=== PATIENT | male | born 1940 | race Caucasian/White ===

== ENCOUNTER 2016-06-18 17:23 | Emergency (ER) | payer MEDICARE, OTHER ==
[~2016-06-18] VITALS: Ht 175.3 cm; Wt 78.2 kg
[2016-06-18 17:30] VITALS: BP 114/62; PULSE 69; RESP 16; O2SAT 96
[2016-06-18 20:04] VITALS: BP 122/62; PULSE 71; RESP 16; O2SAT 97
--- NOTE | 2016-06-18 20:34 | ED.REPORT ---
HPI-General Illness Date of Service Jun 18, 2016 ED Provider: Mirza Chappell MD An otherwise healthy 76 year old male presents to the ED with rashes to his bilateral lower legs and upper arms onset six weeks ago. The rash to his lower extremities is erythematous and painful, accompanied by bilateral leg swelling. The rash to his upper arms is itchy, which the patient believes may be exacerbated by apple and citrus intake. The patient denies chest pain, shortness of breath, or other symptoms. He has been seen in clinic multiple times with these symptoms and was prescribed a course of antibiotics at onset, with no relief. Nursing Notes Stated Complaint: RASH/SWELLING Chief Complaint: Skin Rash/Abscess Nursing Notes Reviewed: Yes Allergies: Uncoded Allergies: PENICILLIN (Allergy, Intermediate, rash, 06/18/16) SUGAR (Allergy, Mild, itching, 06/18/16) Scheduled Furosemide (Lasix) 20 Mg Tablet 20 MG PO DAILY Hydrocortisone Valerate (Hydrocortisone Valerate) 15 Gm Cream..g. 1 GM TP BID Scheduled PRN Hydroxyzine Pamoate (Vistaril) 25 Mg Capsule 25 MG PO HS PRN PRN For Insomnia General Time Seen by MD: 20:33 Chief Complaint Rash Hx Obtained From: Patient Arrived By: Walk-in Sudden in Onset?: No Onset Occurred: More than a week ago... (6 weeks) Symptom Duration: Since onset Location: : Arm left: Arm right: Leg left: Leg right Quality: Itching, Painful Severity: Current: Moderate Severity: Maximum: Moderate Associated with: Reports: Abdominal pain, Denies: Chest pain, Fever Exacerbated by: Eating (Apples and [place]) Pertinent Negative: Relieved by nothing Recent Healthcare: Recent doctor visit Past Medical History Past Medical History None reported Past Surgical History None reported Smoking History Unknown if Ever Smoker Ambulatory Status Independent Review of Systems Full Review of Systems Constitutional: Denies: Fever Respiratory: Denies: Shortness of breath Cardiovascular: Denies: Chest pain GI: Denies: Diarrhea, Vomiting Musculoskeletal: Reports: Extremity swelling (Bilateral lower extremities) Skin: Reports Itching (Upper arms), Reports Rash (Bilateral calves, upper arms) Complete sys rev & neg: except as marked. Physical Exam Vital Signs Vital Signs Date Time Temp Pulse Resp B/P Pulse Ox O2 Delivery O2 Flow Rate FiO2 06/19/16 00:18 36.8 72 18 120/68 97 Room Air 06/18/16 23:09 36.8 72 18 120/68 97 Room Air 06/18/16 20:04 71 16 122/62 97 Room Air 06/18/16 17:30 36.4 69 16 114/62 96 Room Air Initial VS: Reviewed Neck: Supple, Full range of motion Respiratory: Breath sounds normal, Clear to auscultation, No respiratory distress Cardiovascular: Regular rate & rhythm, Heart sounds normal Neurologic: Alert, Oriented, Nonfocal Psychiatric: Mood/affect normal, Behavior normal, Normal thought content Head / Eyes: Atraumatic, Normocephalic, No scleral icterus ENT: Airway patent, Mucous membranes moist, Pharynx NL Lower Extremity / Pelvis / MS: Full range of motion, No deformity Erythematous, brawny edema to bilateral lower extremities with symmetrical splitting of skin, consistent with venous stasis dermatitis Skin: Warm, Dry Rash / Lesion Notes: Generalized, uniform erythematous maculopapular rash diffusely, including back, consistent with eczema No burrows in folds of skin suggestive of scabies Interpretation & Diagnostics Lab Results Interpretation Result Diagram: 06/18/16212506/18/162125 Test 06/18/16 21:26 06/18/16 21:46 White Blood Count 5.0th/mm3 (3.8-10.1) Red Blood Count 4.62mil/mm3 (4.40-5.80) Hemoglobin 15.5g/dL (13.8-17.2) Hematocrit 45.2% (41.0-50.0) Mean Corpuscular Volume 97.8fL (81-100) Mean Corpuscular Hemoglobin 33.5pg (27.0-35.0) Mean Corpuscular Hemoglobin Concent 34.3% (32.0-37.0) Red Cell Distribution Width 12.9% (12.3-15.4) Platelet Count 105bil/L (150-400) Neutrophils (%) (Auto) 54.8% (40-74) Lymphocytes (%) (Auto) 19.0% (14-46) Monocytes (%) (Auto) 7.4% (4-12) Eosinophils (%) (Auto) 18.4% (0-5) Basophils (%) (Auto) 0.2% (0-3) Erythrocyte Sedimentation Rate 3mm/hr (0-30) Prothrombin Time 11.2sec (8.1-12.5) Prothromb Time International Ratio 1.05ratio Sodium Level 139mEq/L (134-144) Potassium Level 4.2mEq/L (3.5-5.2) Chloride Level 102mEq/L (97-108) Carbon Dioxide Level 24mmol/L (18-29) Blood Urea Nitrogen 20mg/dL (8-27) Creatinine 1.21mg/dL (0.76-1.27) Estimat Glomerular Filtration Rate 62mL/min (>59) Glucose Level 97mg/dL (60-99) Calcium Level 8.4mg/dL (8.5-10.1) Magnesium Level 2.3mg/dL (1.6-2.6) Total Bilirubin 0.6mg/dL (0.0-1.2) Aspartate Amino Transf (AST/SGOT) 14U/L (0-50) Alanine Aminotransferase (ALT/SGPT) 11U/L (0-44) Alkaline Phosphatase 59U/L (25-160) Pro-B-Type Natriuretic Peptide 52.00pg/mL (0-486) Total Protein 6.2g/dL (6.4-8.4) Albumin 3.5g/dL (3.4-5.0) Thyroid Stimulating Hormone (TSH) 2.810uIU/mL (0.450-4.500) Free Thyroxine 1.16ng/dL (0.82-1.77) Hold Polanco Top Tube Received (Received) Urine Color Yellow (YELLOW) Urine Appearance Clear (CLEAR,HAZY) Urine pH 5.5 (5.0-8.0) Urine Specific [place] 1.025 (1.003-1.035) Urine Protein Negativemg/dL (NEG,TRACE) Urine Glucose (UA) Negativemg/dL (NEGATIVE) Urine Ketones 15mg/dL (NEGATIVE) Urine Occult Blood Negative (NEGATIVE) Urine Nitrite Negative (NEGATIVE) Urine Bilirubin Negative (NEGATIVE) Urine Urobilinogen Normalmg/dL (NORMAL) Urine Leukocyte Esterase Negative (NEGATIVE) Urine RBC 0-2/hpf (0-2) Urine WBC 0-5/hpf (0-5) Urine Epithelial Cells Occasional/hpf (NONE-MOD) Urine Crystals None seen (NONE SEEN) Urine Bacteria None/hpf (NONE-FEW) Urine Hyaline Casts None/lpf (NONE) Urine Granular Casts None seen (NONE SEEN) Urine Waxy Casts None seen (NONE SEEN) Urine Red Blood Cell Casts None seen (NONE SEEN) Urine White Blood Cell Casts None seen (NONE SEEN) Urine Mucus Present (None Seen) Urine Trichomonas None seen (NONE SEEN) Urine Yeast None (NONE SEEN) Urine Culture Reflexed Not indicated X-Ray Chest Interpretation Chest Xray Interpretation: IMPRESSION: No acute cardiopulmonary findings. Dictated by: Angy Ulrich M.D. on 06/18/2016 at 21:51 View: Portable, 1 view Interpretation / Wet Read by: Interpret - Radiologist Procedures UNNA boots applied to lower legs bilaterally by ED physician and medical student at 23:45 Patient tolerated procedure well Re-Eval/Medical Decision Med Decision/Clinical Course 76-year-old presents with stasis dermatitis in both legs, weeping at this point. Source of his edema is not altogether clear. No evident CHF otherwise. He was placed in Unna boots with plan for follow-up with his PCP in a week and potentially replacement of his Unna boots weekly. He was given Lasix seven day course of 20 mg daily Elevation advised. His other skin lesions are all excoriated maculopapular rash, consistent with eczema. Historical review raises suspicion for citrus intolerance, as he noted an exacerbation after eating citrus fruit. He also eats a lot of nuts and that is an additional suspect. He was advised on an elimination diet, hydroxyzine for her nighttime itch, hydrocortisone valerate cream for his rash, and follow up with PCP. May need dermatologic referral ultimately. Time of Eval: 23:37 Patient Status: Condition improved Re-Evaluation/Progress Note: Patient rechecked. Lower legs wrapped. Discussed with patient x-ray and lab results, diagnosis, and plan for discharge. Follow-up and return to the ER instructions given. Patient agrees with plan for care and all questions were addressed. Counseled Regarding: Diagnosis, Lab results, Need for follow-up, When/why to return to ED Discharge & Departure Shift Change Sign-Out Response to Therapy: Improved Primary Impression: Stasis dermatitis of both legs Additional Impressions: Peripheral edema Eczema Eczema type: unspecified Qualified Code: L30.9 - Dermatitis, unspecified Disposition: Home Discharge Condition All VS Reviewed: Yes Condition: Improved Patient Instructions: Leg Edema (ED), Stasis Dermatitis (ED) Additional Instructions: Wear the boot pl sql developer for a week. Follow-up with your doctor in that timeframe. It may be reasonable to repeat that for two or three cycles until your skin heals. You can remove the compression bandage on the outside, shower , pat dry, and then return the compression dressings on applied without too much tension. If your feet feel numb or cold, loosen and reapply the Julio Cesar wrap bandages on the outside. For the rash on the rest of your body, apply hydrocortisone valerate lotion twice daily. This is a result of some exposure, probably of foodstuff or drug. I doubt it is contact but I cannot be 100% certain of that at this point. My suggestion is to avoid contact with all varieties of nuts, and potentially citrus fruit, since you have noticed that Association. Follow-up with your doctor in the office. Follow-up also with dermatology. This may be a persistent problem and may need specialized attention. You may use Vistaril at night to reduce it should prevent your self causing damage by scratching when you sleep. Take Lasix one tablet daily for the next seven days. Referrals: NOPCP (PCP) Paola Romero MD Attestation Portions of this note were transcribed by Cammy Pinto. I, Dr. Chappell, personally performed the history, physical exam, and medical decision-making; I reviewed and confirmed the accuracy of the information in the transcribed note. Signed by: Miles Ayala, 06/19/2016, 00:32 copies to: Paola Romero MD, Christopher W MD Jun 18, 2016 20:34 CAMMY PINTO Jun 18, 2016 20:53
[2016-06-18 21:36] LABS: BASOPHILS % (AUTO) 0.2 % (0-3); EOSINOPHILS % (AUTO) 18.4 % (0-5); MONOCYTES % (AUTO) 7.4 % (4-12); Mean Corpuscular Hemoglobin 33.5 pg (27.0-35.0); Mean Corpuscular Volume 97.8 fL (81-100); NEUTROPHILS % (AUTO) 54.8 % (40-74); Platelet Count 105 bil/L (150-400)
--- NOTE | 2016-06-18 21:54 | DRSVH ---
PROCEDURE: X-RAY CHEST ONE VIEW, PORTABLE ([id number]) INDICATIONS: edema TECHNIQUE: One view of the chest was acquired. COMPARISON: None. FINDINGS: Surgical changes and devices: None. Lungs and pleura: No pleural effusions or pneumothorax. Lungs are clear. Mediastinum: Mediastinal contours appear normal. Heart size is normal. Bones and chest wall: No suspicious bony lesions. Overlying soft tissues appear unremarkable. IMPRESSION: No acute cardiopulmonary findings. Dictated by: Angy Ulrich M.D. on 06/18/2016 at 21:51 Approved by: Angy Ulrich M.D. on 06/18/2016 at 21:52
[2016-06-18 21:55] LABS: APPEARANCE,URINE CLEAR (CLEAR,HAZY); COLOR,URINE YELLOW (YELLOW); OCCULT BLOOD,URINE NEGATIVE (NEGATIVE); PH,URINE 5.5 (5.0-8.0); UROBILINOGEN,URINE NORMAL (NORMAL)
[2016-06-18 21:58] LABS: INR 1.05 ratio
[2016-06-18 22:06] LABS: ERYTHROCYTE SEDIMENTATION RATE 3 mm/hr (0-30)
[2016-06-18] MEDS ORDERED: NAPR500T PO (22:10)
[2016-06-18] MEDS ORDERED: TRAM50TA2 PO (22:10)
[2016-06-18 22:28] LABS: Magnesium 2.3 mg/dL (1.6-2.6)
[2016-06-18 23:09] VITALS: BP 120/68; PULSE 72; RESP 18; O2SAT 97
[2016-06-18] MEDS ORDERED: HYDR15CR38 TP (23:59)
[2016-06-18] MEDS ORDERED: HYDR25CA PO (23:59)
[2016-06-18] MEDS ORDERED: FURO-129 PO (23:59)
[2016-06-19 00:18] VITALS: BP 120/68; PULSE 72; RESP 18; O2SAT 97
== END 2016-06-19 00:19 | disposition home or self-care (01) ==
LOC: SED 17:23
DX: I87.2 Venous insufficiency (chronic) (peripheral) (principal); R60.0 Localized edema
CPT/HCPCS: 36415; 71010; 80053; 81000; 83735; 83880; 84439; 84443; 85025; 85610; 85651; 99284; G0463

== ENCOUNTER 2016-10-23 13:16 | Emergency (ER) | payer MEDICARE, OTHER ==
[~2016-10-23] VITALS: Ht 177.8 cm; Wt 70.5 kg
[~2016-10-23 13:16] MED LIST: FURO-129 PO; HYDR15CR38 TP; HYDR25CA PO
[2016-10-23 13:21] VITALS: BP 128/65; PULSE 75; RESP 16; O2SAT 96
--- NOTE | 2016-10-23 13:36 | ED.REPORT ---
HPI-Rash / Abscess Date of Service Oct 23, 2016 ED Provider: The patient is a 76 year old male with history of eczema, who presents to the emergency department complaining of an eczema outbreak to his legs, arms, and back that began yesterday. Last night he was in a lot of pain and was unable to sleep. He describes the pain as burning. He has had similar symptoms many times in the past. He normally uses a steroid cream as needed. He has no other concerns at this time. Nursing Notes Stated Complaint: POSSIBLE ECZEMA ON BILATERAL LEGS/FEET Chief Complaint: Skin Rash/Abscess Nursing Notes Reviewed: Yes Allergies: Uncoded Allergies: PENICILLIN (Allergy, Intermediate, rash, 06/18/16) SUGAR (Allergy, Mild, itching, 06/18/16) Scheduled Furosemide (Lasix) 20 Mg Tablet 20 MG PO DAILY Hydrocortisone Valerate (Hydrocortisone Valerate) 15 Gm Cream..g. 1 GM TP BID Triamcinolone Acetonide (Triamcinolone Acetonide Ointment) 15 Gm Oint...g. 15 GM TOP BID Scheduled PRN Hydroxyzine Pamoate (Vistaril) 25 Mg Capsule 25 MG PO HS PRN PRN For Insomnia General Time Seen by MD: 13:35 Chief Complaint Rash Hx Obtained From: Patient Arrived By: Walk-in Onset Occurred: Yesterday Symptom Duration: Since onset Location: : Arm: Back: Lower extremity Quality: Burning Severity: Current: Moderate Severity: Maximum: Severe Pertinent Negative: Pt denies other symptoms Similar Sx Previous: Yes Past Medical History Past Medical History Eczema Past Surgical History None reported Family History Noncontributory Smoking History Unknown if Ever Smoker Social History Other Social History: Local resident Ambulatory Status Independent Review of Systems Musculoskeletal: Reports: Extremity pain Skin: Reports Rash Complete sys rev & neg: except as marked. Physical Exam Initial Vital Signs Vital Signs (First) Date Time Temp Pulse Resp B/P Pulse Ox O2 Delivery O2 Flow Rate FiO2 10/23/16 13:21 36.8 75 16 128/65 96 Room Air Initial VS: Reviewed Head / Eyes: Atraumatic, Normocephalic, PERRL ENT: Mucous membranes moist, Conjunctiva normal, No scleral icterus Neck: Supple, Non-tender, Full range of motion Respiratory: Breath sounds normal, Clear to auscultation, No respiratory distress Cardiovascular: Regular rate & rhythm, Heart sounds normal, Intact distal pulses Abdomen / GI: Soft, Non-tender, No guarding, No rebound, No distention Extremities: Vascular intact, Neuro intact, No swelling, No tenderness Neurologic: Alert, Oriented, Nonfocal Psychiatric: Mood/affect normal, Behavior normal, Normal thought content General/Constitutional: Awake, Alert, Well appearing Skin: Warm, Dry Rash / Lesion Notes: Diffuse erythematous papules to his arms, chest, back, and legs. Re-Eval/Medical Decision Med Decision/Clinical Course 76-year-old male history of eczema presenting complaining of worsening eczema. On triamcinolone 0.025% which is helped some. Now complaining of worsening. Will increase steroid cream to triamcinolone 0.1%. Patient agreeable with this plan. He will follow-up with his primary doctor. There is no evidence of infection. Source of Hx: Old records Re-Evaluation/Progress : Time of Eval: 13:54 Re-Evaluation/Progress Note: Discussed exam findings, diagnosis, and plan for discharge. All questions were addressed. Counseled Regarding: Diagnosis, Need for follow-up, When/why to return to ED Discharge & Departure Impression: Primary Impression: Eczema Eczema type: unspecified Qualified Code: L30.9 - Dermatitis, unspecified Disposition: Home Discharge Condition All VS Reviewed: Yes Condition: Stable Patient Instructions: Eczema (ED) Additional Instructions: Thank you for entrusting us with your care today. Use the steroid cream as prescribed. Followup with your regular doctor in the next 2 weeks if your symptoms are not improving. Return to the emergency department for increased pain, fever, chills, or any other new or concerning symptoms. Referrals: NOPCP (PCP) Scribe Attestation Portions of this note were transcribed by Denae Navas. I, Dr. Hensley personally performed the history, physical exam and medical decision-making; I reviewed and confirmed the accuracy of the information in the transcribed note. Signed by: Miles Yates, 10/23/2016 at 1430. Mahamed Hensley MD Oct 23, 2016 13:36 Denae Navas Oct 23, 2016 13:55
[2016-10-23] MEDS ORDERED: TRIA15OI9 TOP (14:11)
[2016-10-23 14:39] VITALS: BP 128/65; PULSE 75; RESP 16; O2SAT 96
== END 2016-10-23 14:30 | disposition home or self-care (01) ==
LOC: SED 13:16
DX: L30.9 Dermatitis, unspecified (principal); Z88.0 Allergy status to penicillin